=== PATIENT | male | born 1955 | race Hispanic/Latino ===

== ENCOUNTER 2024-08-21 10:00 | Emergency (ER) | payer SELFPAY ==
[~2024-08-21] VITALS: Ht 162.6 cm; Wt 56.7 kg
[2024-08-21 10:08] VITALS: PULSE 52; RESP 18; TEMP 97.5; O2SAT 97
[2024-08-21] MEDS: OXYMETAZOLINE HCL 0.05% NAS 1 SPRAY BTL STA (10:24)
== END 2024-08-21 11:19 | disposition home or self-care (01) ==
LOC: ER 10:08
DX: R04.0 Epistaxis (principal); I10 Essential (primary) hypertension
CPT/HCPCS: 99282

== ENCOUNTER 2024-08-24 11:34 | Emergency (ER) | payer SELFPAY ==
[~2024-08-24] VITALS: Ht 162.6 cm; Wt 56.7 kg
[2024-08-24 11:50] VITALS: PULSE 60; RESP 18; TEMP 98.5; O2SAT 98
== END 2024-08-24 14:08 | disposition home or self-care (01) ==
LOC: ER 11:45
DX: R04.0 Epistaxis (principal); I10 Essential (primary) hypertension
CPT/HCPCS: 99282